=== PATIENT | female | born 1995 | race Caucasian/White ===

== ENCOUNTER 2020-08-07 18:37 | Emergency (ER) | payer OTHER ==
[~2020-08-07] VITALS: Ht 170.2 cm; Wt 81.8 kg
[~2020-08-07 18:37] MED LIST: CPH250CIP PO; NAPR-243 PO
[2020-08-07 19:17] VITALS: BP 115/75
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
== END 2020-08-07 19:45 | disposition home or self-care (01) ==
LOC: EDUNIT# 18:37 → ER 18:39
DX: S01.112A Laceration without foreign body of left eyelid and periocular area, initial encounter (principal); Z88.0 Allergy status to penicillin; W20.8XXA Other cause of strike by thrown, projected or falling object, initial encounter
CPT/HCPCS: 12011

== ENCOUNTER 2020-11-03 01:21 | Emergency (ER) | payer OTHER ==
[~2020-11-03] VITALS: Ht 170 cm; Wt 82.0 kg
[2020-11-03 01:28] VITALS: BP 121/83
--- NOTE | 2020-11-03 01:48 | ED EENT ---
History of Present Illness General Chief Complaint: Oral/Throat Problems Stated Complaint: POST OP TONSILECTOMY BLEED Nursing Triage Note: bleeding from tonsillectomy 10/24/20. 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 Source: patient Exam Limitations: no limitations (HALLEY MEDINA) History of Present Illness Date Seen by Provider: November 03, 2020 Time Seen by Provider: 01:35 Initial Comments Pt presents to ED via POV with complaint of post-tonsillectomy bleeding. She states that just prior to arrival, she was moving furniture at her home when her tonsillectomy sites started bleeding. She had the procedure on 10/[address] Ellison and has a f/u appointment in early November. She states that the bleeding lasted a couple of minutes and stopped on its own prior to arrival. She finished her course of antibiotics on Saturday and does not currently take any medications. She denies other symptoms of chest pain, abd pain, N/V, SOB, lightheadedness. Location Injury Occurred: home Timing/Duration: abrupt Severity: moderate Location: mouth Prearrival Treatment: no prearrival treatment Presenting Symptoms/Injuries: bleeding to tonsillectomy sites Modifying Factors: Improves With Activity (moving furniture) Associated Symptoms: No cough, No fever, No malaise, No nasal congestion/drainage (HALLEY MEDINA STUDENT) Allergies and Home Medications Allergies Coded Allergies: Penicillins (Unverified Allergy, 01/30/11) Home Medications Naproxen 500 Mg Tablet, 1 EACH PO TID PRN FOR PAIN Prescribed by: ROSA MATAMOROS on 07/13/11 1044 Patient Home Medication List Home Medication List Reviewed: Yes (HALLEY MEDINA STUDENT) Review of Systems Review of Systems Constitutional: No chills, No fever, No weakness Eyes: Denies Blurred Vision, Denies Pain, Denies Vision Changes Ears: Denies Dizziness, Denies Pain, Denies Tinnitus Nose: denies clots, denies epistaxis, denies pain Mouth: clots; denies pain; bloody discharge Throat: denies pain, denies swelling, denies neck stiffness Respiratory: No cough, No short of breath Cardiovascular: No chest pain, No edema, No palpitations Gastrointestinal: No abdominal pain, No constipation, No diarrhea, No nausea, No vomiting Musculoskeletal: No back pain, No joint pain, No muscle pain Skin: No change in color, No rash Neurological: Denies Headache, Denies Numbness, Denies Paresthesia, Denies Tingling, Denies Weakness (HALLEY MEDINA STUDENT) All Other Systems Reviewed Negative Unless Noted: Yes (ADAMHALLEY FRAGA STUDENT) Past Zxnpncy-Vugbsb-Qzldpo Hx Past Med/Social Hx: Reviewed Nursing Past Med/Soc Hx (ADAMHALLEY FRAGA STUDENT) Patient Social History Alcohol Use: Denies Use Smoking Status: Never a Smoker 2nd Hand Smoke Exposure: No Recent Infectious Disease Expo: No Recent Hopitalizations: No (ADAMHALLEY FRAGA STUDENT) Seasonal Allergies Seasonal Allergies: No (ADAMHALLEY FRAGA STUDENT) Past Medical History Surgeries: No Respiratory: No Cardiac: No Neurological: No : No Last Menstrual Period: October 09, 2020 Genitourinary: No Gastrointestinal: No Musculoskeletal: No Endocrine: No HEENT: No Cancer: No Psychosocial: No Integumentary: No Blood Disorders: No (ADAMHALLEY FRAGA STUDENT) Physical Exam Vital Signs Vital Signs - First Documented 11/03/20 01:28 Temp 36.6 Pulse 107 Resp 18 B/P (MAP) 121/83 (96) Pulse Ox 96 O2 Delivery Room Air (HENRY NEFF) Height, Weight, BMI Height: '" Weight: lbs. oz. kg; 28.00 BMI Method:Stated General Appearance: WD/WN, no apparent distress Eyes: bilateral eye normal inspection, bilateral eye PERRL, bilateral eye EOMI Ears: bilateral ear auricle normal Nose: normal inspection Mouth/Throat: other (bilateral post-tonsillectomy sites covered with clots and no active bleeds) Neck: non-tender, full range of motion, supple, normal inspection Cardiovascular: normal peripheral pulses, regular rate, rhythm, no murmur Respiratory: chest non-tender, lungs clear, normal breath sounds, no respiratory distress, no accessory muscle use Gastrointestinal: normal bowel sounds, non tender, soft; No distended, No guarding Neurologic/Psychiatric: no motor/sensory deficits, alert, normal mood/affect, oriented x 3 Skin: normal color, warm/dry (ADAMHALLEY FRAGA STUDENT) Progress/Results/Core Measures Results/Orders Vital Signs/I&O 11/03/20 01:28 Temp 36.6 Pulse 107 Resp 18 B/P (MAP) 121/83 (96) Pulse Ox 96 O2 Delivery Room Air (HENRY NEFF) Blood Pressure Mean: 96 Progress Progress Note #1: Time: 01:45 Progress Note I attest that I 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 Patient's not having any further bleeding and everything seems to be clotted off at this time. She not having any nausea chest pain shortness of air or other worrisome symptoms. We are going to observe her for about half an hour to 45 minutes give her some ice water to sip on. If she does not have any further bl eeding we will let her go home and have her call Dr. Ellison's office in the morning. We have encouraged her if the bleeding starts again to try rinsing for about 10 minutes and if the bleeding does not stop after 10 minutes then return to the ER. Progress Note #2: Time: 02:17 Progress Note Patient still not having any bleeding. She has some small blood clots in the back of her throat otherwise looks okay. No nausea or other symptoms. (HENRY NEFF) Departure Impression Primary Impression: Post-tonsillectomy hemorrhage Disposition: 01 HOME, SELF-CARE Condition: Stable Departure-Patient Inst. Decision time for Depature: 02:16 (HENRY NEFF) Referrals: MATTHEW ELLISON MD,LOCAL PHYSICIAN (PCP) Primary Care Physician Patient Instructions: Bleeding After Surgery, Tonsillectomy (DC) Add. Discharge Instructions: Get plenty of rest throughout the next day. No heavy lifting. If you have repeat bleeding then rinse the back your throat with clean, cool tap water with or without ice for 10 minutes. If you cannot get the bleeding to stop in 10 minutes then return to the ER or call Dr. Ellison's office during business hours. Otherwise plan to call Dr. Ellison's office to check in in the morning. Avoid ibuprofen, Aleve, naproxen. Tylenol is okay. All discharge instructions reviewed with patient and/or family. Voiced understanding. Work/School Note: Work Release Form Date Seen in the Emergency Department: November 03, 2020 Return to Work: November 04, 2020 Restrictions: No Restrictions Copy Copies To 1: MATTHEW ELLISON MD, JOHNNY MED STUDENT November 03, 2020 01:48 HENRY NEFF November 03, 2020 01:59
== END 2020-11-03 02:21 | disposition home or self-care (01) ==
LOC: EDUNIT# 01:21 → ER 01:24
DX: J95.831 Postprocedural hemorrhage of a respiratory system organ or structure following other procedure (principal)
CPT/HCPCS: 99282

== ENCOUNTER 2020-11-05 01:48 | Day surgery (SDC) | payer OTHER ==
[~2020-11-05] VITALS: Ht 170 cm; Wt 79.0 kg
[2020-11-05] VITALS (10 sets, daily range): BP systolic 97–128; BP diastolic 57–73
[2020-11-05] MEDS ORDERED: NS IV 1000 ML 1,000 ML IV SCH ×2 (02:30→03:00)
[2020-11-05 02:46] LABS: BASOPHILS % (AUTO) 0 % (0-10); EOSINOPHILS # (AUTO) 0.3 10^3/uL (0.0-0.3); EOSINOPHILS % (AUTO) 2 % (0-10); HEMATOCRIT 29 % (35-52); HEMOGLOBIN 9.5 g/dL (11.5-16.0); LYMPHOCYTES # (AUTO) 6.3 10^3/uL (1.0-4.0); LYMPHOCYTES % (AUTO) 35 % (12-44); MEAN CORPUSCULAR HEMOGLOBIN 29 pg (25-34); MEAN CORPUSCULAR HGB CONC 33 g/dL (32-36); MEAN CORPUSCULAR VOLUME 88 fL (80-99); MONOCYTES # (AUTO) 1.4 10^3/uL (0.0-1.0); MONOCYTES % (AUTO) 8 % (0-12); NEUTROPHILS % (AUTO) 55 % (42-75); PLATELET COUNT 273 10^3/uL (130-400); WHITE BLOOD COUNT 18.1 10^3/uL (4.3-11.0)
--- NOTE | 2020-11-05 02:57 | ED EENT ---
History of Present Illness General Chief Complaint: Oral/Throat Problems Stated Complaint: POST TONSILECTOMY BLEEDING Source: patient History of Present Illness Date Seen by Provider: November 05, 2020 Time Seen by Provider: 02:12 Initial Comments PT ARRIVES VIA POV C/O BLEEDING FROM TONSILLECTOMY SITE/THROAT SINCE [address]. WILD ON 10/24/20 [facility] SEEN HERE 11/03/20 FOR SAME, BUT BLEEDING HAD STOPPED AT THAT TIME PT HAS NOT ATTEMPTED TO CONTACT DR. WILD FOR THIS PROBLEM NO SIGNIFICANT PAIN NO FEVER STATES SHE VOMITED UP ALOT OF BLOOD AND HAS BEEN SPITTING UP BLOOD AND CLOTS TONIGHT PT HAD GARGLED WITH COLD WATER TONIGHT WHEN IT FIRST STARTED, AND IT STOPPED BRIEFLY, THEN HAS BEEN CONTINUOUS SINCE PT HAS BEEN VERY ACTIVE TODAY, ATE BREAKFAST, HAD A PEDICURE, HAD DINNER, HAS BEEN MOVING FURNITURE AROUND IN A HOUSE, HAS BEEN TO THE BAR TONIGHT--STATES SHE HAS NOT HAD ANY ALCOHOL PT IS NOT ON ANTIBIOTICS AT THIS TIME. Allergies and Home Medications Allergies Coded Allergies: Penicillins (Unverified Allergy, Unknown, 11/05/20) Home Medications No Active Prescriptions or Reported Meds Patient Home Medication List Home Medication List Reviewed: Yes Review of Systems Review of Systems Constitutional: dizziness (ON ARRIVAL); No fever Throat: see HPI Gastrointestinal: see HPI Past Premdsj-Eftwev-Zasyiq Hx Past Med/Social Hx: Reviewed and Corrections made Patient Social History Alcohol Use: Occasionally Uses Smoking Status: Never a Smoker 2nd Hand Smoke Exposure: No Recent Hopitalizations: No Seasonal Allergies Seasonal Allergies: No Past Medical History Surgeries: Yes Adenoidectomy, Tonsillectomy Respiratory: No Cardiac: No Neurological: No Genitourinary: No Gastrointestinal: No Musculoskeletal: No Endocrine: No HEENT: No Cancer: No Psychosocial: No Integumentary: No Blood Disorders: No Physical Exam Height, Weight, BMI Height: '" Weight: lbs. oz. kg; 28.00 BMI Method:Stated General Appearance: WD/WN, other (VERY PALE, NEAR-SYNCOPAL EPISODE ON ARRIVAL, C/O DIZZINESS) Eyes: bilateral eye PERRL, bilateral eye EOMI Mouth/Throat: other (PT WITH MODERATE AMOUNT OF BLOOD AROUND MOUTH, IN MOUTH AND BOTH TONSILS, UVULA AND POSTERIOR PHARYNX COMPLETELY COVERED WITH BLOOD, WITH SOME EARLY CLOTS. VOICE SLIGHTLY MUFFLED. ) Cardiovascular: tachycardia Respiratory: normal breath sounds, no respiratory distress Gastrointestinal: non tender, soft Neurologic/Psychiatric: no motor/sensory deficits, alert, oriented x 3 Skin: cool, pallor Progress/Results/Core Measures Results/Orders Lab Results Laboratory Tests Test 11/05/20 02:35 11/05/20 02:39 Range/Units White Blood Count 18.1 H 4.3-11.0 10^3/uL Red Blood Count 3.32 L 3.80-5.11 10^6/uL Hemoglobin 9.5 L 11.5-16.0 g/dL Hematocrit 29 L 35-52 % Mean Corpuscular Volume 88 80-99 fL Mean Corpuscular Hemoglobin 29 25-34 pg Mean Corpuscular Hemoglobin Concent 33 32-36 g/dL Red Cell Distribution Width 14.8 H 10.0-14.5 % Platelet Count 273 130-400 10^3/uL Mean Platelet Volume 10.0 9.0-12.2 fL Immature Granulocyte % (Auto) 0 % Neutrophils (%) (Auto) 55 42-75 % Lymphocytes (%) (Auto) 35 12-44 % Monocytes (%) (Auto) 8 0-12 % Eosinophils (%) (Auto) 2 0-10 % Basophils (%) (Auto) 0 0-10 % Neutrophils # (Auto) 10.0 H 1.8-7.8 10^3/uL Lymphocytes # (Auto) 6.3 H 1.0-4.0 10^3/uL Monocytes # (Auto) 1.4 H 0.0-1.0 10^3/uL Eosinophils # (Auto) 0.3 0.0-0.3 10^3/uL Basophils # (Auto) 0.0 0.0-0.1 10^3/uL Immature Granulocyte # (Auto) 0.1 0.0-0.1 10^3/uL My Orders Orders - ROSA MATAMOROS DO Ed Iv/Invasive Line Start (11/05/20 02:18) Cbc With Automated Diff (11/05/20 02:18) Comprehensive Metabolic Panel (11/05/20 02:18) Hcg,Qualitative Serum (11/05/20 02:18) Ed Iv/Invasive Line Start (11/05/20 02:18) Ns Iv 1000 Ml (Sodium Chloride 0.9%) (11/05/20 02:30) Type And Screen (11/05/20 02:45) Ed Iv/Invasive Line Start (11/05/20 02:48) Ns Iv 1000 Ml (Sodium Chloride 0.9%) (11/05/20 03:00) Progress Progress Note : Progress Note HR 132 ON ARRIVAL, BP 77/52, WITH NEAR-SYNCOPE ON ARRIVAL LAID FLAT, STARTED IV FLUIDS PT DENIES PAIN OR NAUSEA AT THIS TIME BP UP AND HEART RATE DOWN WITH IV FLUIDS Departure Communication (Admissions) 0230--CALLED DR. WILD, HE WILL BE IN TO SEE PT , ADVISES TO CALL IN OR CREW 0250--DR. WILD HERE Impression Primary Impression: Post-tonsillectomy hemorrhage Disposition: ADMITTED INPATIENT (TO SURGERY) Condition: Stable Admissions Decision to Admit Reason: Admit from ER (General) (TO SURGERY) Decision to Admit/Date: November 05, 2020 Time/Decision to Admit Time: 02:30 Departure-Patient Inst. Referrals: NO,LOCAL PHYSICIAN (PCP/Family) Primary Care Physician Scripts No Active Prescriptions or Reported Meds ROSA MATAMOROS DO November 05, 2020 02:57
[2020-11-05 03:05] LABS: ALBUMIN 3.6 GM/DL (3.2-4.5); CHLORIDE 107 MMOL/L (98-107); POTASSIUM 3.5 MMOL/L (3.6-5.0); SODIUM 139 MMOL/L (135-145)
[2020-11-05] MEDS ORDERED: ONDANSETRON 4 MG/2 ML (SDV) Z0FRAN ONE ×2 (03:05→03:09)
[2020-11-05 03:06] LABS: CALCIUM 8.7 MG/DL (8.5-10.1)
[2020-11-05] MEDS ORDERED: morphine INJ 10 MG/ML 1ML (SYR OR VIAL) ONE (03:06)
[2020-11-05 03:07] LABS: GLUCOSE 113 MG/DL (70-105)
[2020-11-05 03:09] LABS: BILIRUBIN,TOTAL 0.2 MG/DL (0.1-1.0); CARBON DIOXIDE 22 MMOL/L (21-32)
[2020-11-05] MEDS ORDERED: SEVOFLURANE (ULTANE) 15 ML INHAL SOLN ONE (03:09)
[2020-11-05] MEDS ORDERED: LIDOCAINE PF 2% 5 ML (XYLOCAINE) VIAL ONE (03:09)
[2020-11-05] MEDS ORDERED: SUCCINYLCHOLINE INJ 100 MG/5 ML SYR/VIAL ONE (03:09)
[2020-11-05] MEDS ORDERED: proPOfol 200 MG/20 ML (DIPRIVAN) VIAL IV ONE (03:09)
[2020-11-05] MEDS ORDERED: fentaNYL INJ 100 MCG/2 ML AMP ONE (03:09)
[2020-11-05] MEDS ORDERED: MIDAZOLAM 2 MG/2 ML (VERSED) VIAL ONE (03:10)
[2020-11-05 03:11] LABS: ALKALINE PHOSPHATASE 60 U/L (40-136); CREATININE SERUM 0.77 MG/DL (0.60-1.30); GFR ESTIMATED > 60
[2020-11-05 03:12] LABS: BUN/CREATININE RATIO 18
[2020-11-05 03:14] LABS: ALANINE AMINOTRANSFERASE 8 U/L (0-55)
--- NOTE | 2020-11-05 04:11 | Anesthesia-General Post-Op ---
General Patient Condition Mental Status/LOC: Same as Preop Cardiovascular: Satisfactory Nausea/Vomiting: Absent Respiratory: Satisfactory Pain: Controlled Complications: Absent Post Op Complications Complications None Follow Up Care/Instructions Patient Instructions None needed. Anesthesia/Patient Condition Patient Condition Patient is doing well, no complaints, stable vital signs, no apparent adverse anesthesia problems. No complications reported per nursing. MICHAELA GUNTER CRNA November 05, 2020 04:11
--- NOTE | 2020-11-05 04:14 | Progress Note-Post Operative ---
Post-Operative Progess Note Surgeon (s)/Media Center Assistant (s) Surgeon MATTHEW WILD MD Media Center Assistant n/a Post-Operative Diagnosis same Post-Op Procedure Note Date of Procedure: November 05, 2020 Name of Procedure Performed: Repair of Post-op Tonsil Bleed Description & Findings Description and Findings: n/a Anesthesia Type get Estimated Blood Loss minimal Packing none. Specimen(s) collected/removed none MATTHEW WILD MD November 05, 2020 04:14
[2020-11-05] MEDS ORDERED: LACTATED RINGERS 1,000 ML IV PRN (04:15)
[2020-11-05] MEDS ORDERED: PROMETHAZINE INJ 25 MG/ML (PHENERGAN) AMP IVP ONE (04:15)
[2020-11-05] MEDS ORDERED: ONDANSETRON 4 MG/2 ML (SDV) Z0FRAN IVP PRN (04:15)
[2020-11-05] MEDS ORDERED: morphine INJ 10 MG/ML 1ML (SYR OR VIAL) IVP ONE (04:15)
[2020-11-05] MEDS ORDERED: APAP 325 MG/10.15 ML LIQ (TYLENOL) UDC PO PRN (04:15)
[2020-11-05] MEDS ORDERED: HYDROcodone/APAP 7.5MG-325 MG/15 ML (LORTAB) UDC PO PRN (04:15)
[2020-11-05] MEDS ORDERED: MEPERIDINE (DEMEROL) INJ 50 MG/ML IVP ONE (04:15)
[2020-11-05] MEDS ORDERED: fentaNYL INJ 100 MCG/2 ML AMP IVP ONE (04:15)
[2020-11-05] MEDS ORDERED: ONDANSETRON 4 MG (ZOFRAN) ORAL DISSOLVE TAB PO STA (04:17)
== END 2020-11-05 13:44 | disposition home or self-care (01) ==
LOC: EDUNIT# 01:48 → ER 01:51 → SDC 03:49 → 4TH 04:55 → SDC 13:44
PROVIDERS: ATTEND Otolaryngology Otolaryngology/Facial Plastic Surgery
DX: J95.830 Postprocedural hemorrhage of a respiratory system organ or structure following a respiratory system procedure (principal); Z90.89 Acquired absence of other organs
CPT/HCPCS: 36415; 80053; 84703; 85025; 86850; 86900; 86901

== ENCOUNTER 2021-12-15 12:34 | Emergency (ER) | payer SELFPAY ==
[2021-12-15] MEDS ORDERED: NS 100 ML (IVPB) BAG IV ONE (13:15)
[2021-12-15] MEDS ORDERED: KETOROLAC 30 MG/ML VIAL IVP ONE (13:15)
[2021-12-15] MEDS ORDERED: IOHEXOL 350 MG/ML 100 ML (OMNIPAQUE 350) VIAL IV ONE (13:15)
[2021-12-15] MEDS ORDERED: HOLD METFORMIN - RECEIVED CONTRAST 20 ML VIAL IV SCH (13:15)
--- NOTE | 2021-12-15 13:18 | ED Abdominal Pain ---
General Chief Complaint: Abdominal/GI Problems Stated Complaint: RLQ PAIN Source of Information: Patient Exam Limitations: No Limitations (VENKAT GARCIA APRN) History of Present Illness Date Seen by Provider: Dec 15, 2021 Time Seen by Provider: 13:17 Initial Comments To ER by private [facility] where she presented with right lower quadrant abdominal pain that started fairly suddenly while at work today. No nausea. Pain is constant but occasionally worse. No fevers or chills no dysuria no bowel changes. Timing/Duration: 4-6 Hours Severity/Quality: Moderate Location: RLQ, Flank Radiation: No Radiation Activities at Onset: None (VENKAT GARCIA APRN) Allergies and Home Medications Allergies Coded Allergies: Penicillins (Unverified Allergy, Unknown, 11/05/20) cephalexin (Verified Allergy, Unknown, HIVES, 12/15/21) Patient Home Medication List Home Medication List Reviewed: Yes (VENKAT GARCIA APRN) Polyethylene Glycol 3350 (Miralax) 17 Gram Powd.pack, 17 GM PO BID Prescribed by: VENKAT GARCIA on 12/15/21 1402 Review of Systems Review of Systems Constitutional: see HPI EENTM: No Symptoms Reported Respiratory: No Symptoms Reported Cardiovascular: No Symptoms Reported Gastrointestinal: See HPI, Abdominal Pain Genitourinary: No Symptoms Reported Musculoskeletal: no symptoms reported Skin: no symptoms reported Psychiatric/Neurological: No Symptoms Reported Endocrine: No Symptoms Reported Hematologic/Lymphatic: No Symptoms Reported (VENKAT GARCIA APRN) Past Umyncad-Wdvvag-Dbgtjm Hx Patient Social History Tobacco Use?: No Use of E-Cig and/or Vaping dev: No Substance use?: No Alcohol Use?: Yes Alcohol type: Beer Alcohol Frequency: Rarely Pt feels they are or have been: No (VENKAT GARCIA APRN) Immunizations Up To Date Influenza Vaccine Up-to-Date: No; Not Current First/Initial COVID19 Vaccinat: 2020 Second COVID19 Vaccination Tevin: 2020 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: [employer] (VENKAT GARCIA APRN) Seasonal Allergies Seasonal Allergies: No (VENKAT GARCIA APRN) Past Medical History Surgery/Hospitalization HX: DEPRESSION TONSILS, IUD Surgeries: Yes Adenoidectomy, Tonsillectomy Respiratory: No Cardiac: No Neurological: No Genitourinary: No Gastrointestinal: No Musculoskeletal: No Endocrine: No HEENT: No Cancer: No Psychosocial: No Integumentary: No Blood Disorders: No (VENKAT GARCIA APRN) Physical Exam Vital Signs Vital Signs - First Documented 12/15/21 13:00 Temp 36.1 Pulse 69 Resp 14 B/P (MAP) 116/83 (94) (SHAD DIAZ MD) Vital Signs Capillary Refill : (VENKAT GARCIA APRN) Height/Weight/BMI Height: '" Weight: lbs. oz. kg; 27.33 BMI Method:Stated General Appearance: WD/WN, no apparent distress Respiratory: lungs clear, normal breath sounds, no respiratory distress, no accessory muscle use Cardiovascular: regular rate, rhythm, no murmur Gastrointestinal: normal bowel sounds, non tender, soft; No guarding, No rebound, No tenderness Extremities: normal range of motion, non-tender Neurologic/Psychiatric: alert, normal mood/affect, oriented x 3 Skin: normal color (VENKAT GARCIA APRN) Progress/Results/Core Measures Results/Orders Lab Results Laboratory Tests Test 12/15/21 13:09 12/15/21 14:36 Range/Units White Blood Count 7.9 4.3-11.0 10^3/uL Red Blood Count 4.21 3.80-5.11 10^6/uL Hemoglobin 10.9 L 11.5-16.0 g/dL Hematocrit 35 35-52 % Mean Corpuscular Volume 82 80-99 fL Mean Corpuscular Hemoglobin 26 25-34 pg Mean Corpuscular Hemoglobin Concent 32 32-36 g/dL Red Cell Distribution Width 18.6 H 10.0-14.5 % Platelet Count 244 130-400 10^3/uL Mean Platelet Volume 10.0 9.0-12.2 fL Immature Granulocyte % (Auto) 0 % Neutrophils (%) (Auto) 57 42-75 % Lymphocytes (%) (Auto) 31 12-44 % Monocytes (%) (Auto) 9 0-12 % Eosinophils (%) (Auto) 2 0-10 % Basophils (%) (Auto) 0 0-10 % Neutrophils # (Auto) 4.5 1.8-7.8 10^3/uL Lymphocytes # (Auto) 2.4 1.0-4.0 10^3/uL Monocytes # (Auto) 0.7 0.0-1.0 10^3/uL Eosinophils # (Auto) 0.2 0.0-0.3 10^3/uL Basophils # (Auto) 0.0 0.0-0.1 10^3/uL Immature Granulocyte # (Auto) 0.0 0.0-0.1 10^3/uL Sodium Level 137 135-145 MMOL/L Potassium Level 3.7 3.6-5.0 MMOL/L Chloride Level 106 98-107 MMOL/L Carbon Dioxide Level 23 21-32 MMOL/L Anion Gap 8 5-14 MMOL/L Blood Urea Nitrogen 11 7-18 MG/DL Creatinine 0.70 0.60-1.30 MG/DL Estimat Glomerular Filtration Rate 124 BUN/Creatinine Ratio 16 Glucose Level 86 70-105 MG/DL Calcium Level 8.9 8.5-10.1 MG/DL Corrected Calcium 8.7 8.5-10.1 MG/DL Total Bilirubin 0.7 0.1-1.0 MG/DL Aspartate Amino Transf (AST/SGOT) 18 5-34 U/L Alanine Aminotransferase (ALT/SGPT) 14 0-55 U/L Alkaline Phosphatase 59 40-136 U/L Total Protein 7.0 6.4-8.2 GM/DL Albumin 4.2 3.2-4.5 GM/DL Serum Test, Qualitative NEGATIVE NEGATIVE Urine Color YELLOW Urine Clarity CLEAR Urine pH 6.0 5-9 Urine Specific [place] >=1.030 1.016-1.022 Urine Protein TRACE H NEGATIVE Urine Glucose (UA) NEGATIVE NEGATIVE Urine Ketones NEGATIVE NEGATIVE Urine Nitrite NEGATIVE NEGATIVE Urine Bilirubin NEGATIVE NEGATIVE Urine Urobilinogen 0.2 < = 1.0 MG/DL Urine Leukocyte Esterase NEGATIVE NEGATIVE Urine RBC (Auto) 2+ H NEGATIVE Urine RBC 10-25 H /HPF Urine WBC 0-2 /HPF Urine Squamous Epithelial Cells 0-2 /HPF Urine Crystals PRESENT H /LPF Urine Amorphous Sediment FEW COLIN URATES H /LPF Urine Bacteria NEGATIVE /HPF Urine Casts NONE /LPF Urine Mucus MODERATE H /LPF Urine Culture Indicated NO (SHAD DIAZ MD) Medications Given in ED Current Medications Medications Dose Ordered Sig/Lily Route Start Time Stop Time Status Last Admin Dose Admin Ketorolac Tromethamine 15 mg ONCE ONCE IVP 12/15/21 13:15 12/15/21 13:17 DC 12/15/21 13:19 15 MG (SHAD DIAZ MD) Vital Signs/I&O 12/15/21 12/15/21 13:00 15:54 Temp 36.1 36.1 Pulse 69 67 Resp 14 14 B/P (MAP) 116/83 (94) 122/77 (SHAD DIAZ MD) Departure Impression Primary Impression: Constipation Additional Impression: Nephrolithiasis Disposition: HOME, SELF-CARE Condition: Stable Departure-Patient Inst. Decision time for Depature: 14:01 (VENKAT GARCIA APRN) Referrals: NO,LOCAL PHYSICIAN (PCP/Family) Primary Care Physician Patient Instructions: Constipation in Adults Add. Discharge Instructions: Increase water intake. Return to ER for any concerns. Laxative as directed. Follow-up with your doctor next week. You do have a small 2 mm stone in the right kidney. These tend to not cause pain until they are in the ureter--continue that goes from the kidney to the bladder. So, the location where yours is right now for at least at the time of the CT scan with a location that does not cause pain. That being said you could pass this at any time or you could never pass it. Take a laxative as directed as the constipation on the ascending colon will certainly cause some right-sided abdominal discomfort. Follow-up with your doctor next week. All discharge instructions reviewed with patient and/or family. Voiced understanding. Scripts Polyethylene Glycol 3350 (Miralax) 17 Gram Powd.pack 17 GM PO BID, #10 EACH Prov: VENKAT GARCIA APRN 12/15/21 ATTENDING PHYSICIAN NOTE: I was physically present as attending physician in the emergency department during the care of this patient, but I was not directly involved in the decision making or delivery of care for this patient. (SHAD DIAZ MD) VENKAT GARCIA APRN Dec 15, 2021 13:18 SHAD DIAZ MD Dec 15, 2021 18:31
[2021-12-15 13:30] LABS: BASOPHILS % (AUTO) 0 % (0-10); EOSINOPHILS # (AUTO) 0.2 10^3/uL (0.0-0.3); EOSINOPHILS % (AUTO) 2 % (0-10); HEMATOCRIT 35 % (35-52); HEMOGLOBIN 10.9 g/dL (11.5-16.0); LYMPHOCYTES # (AUTO) 2.4 10^3/uL (1.0-4.0); LYMPHOCYTES % (AUTO) 31 % (12-44); MEAN CORPUSCULAR HEMOGLOBIN 26 pg (25-34); MEAN CORPUSCULAR HGB CONC 32 g/dL (32-36); MEAN CORPUSCULAR VOLUME 82 fL (80-99); MONOCYTES # (AUTO) 0.7 10^3/uL (0.0-1.0); MONOCYTES % (AUTO) 9 % (0-12); NEUTROPHILS # (AUTO) 4.5 10^3/uL (1.8-7.8); NEUTROPHILS % (AUTO) 57 % (42-75); PLATELET COUNT 244 10^3/uL (130-400); WHITE BLOOD COUNT 7.9 10^3/uL (4.3-11.0)
[2021-12-15 13:48] LABS: ALBUMIN 4.2 GM/DL (3.2-4.5)
[2021-12-15 13:49] LABS: POTASSIUM 3.7 MMOL/L (3.6-5.0)
--- NOTE | 2021-12-15 13:49 | Diagnostic Imaging Report ---
EXAMINATION: CT abdomen and pelvis without contrast. TECHNIQUE: Multiple contiguous axial images were obtained through the abdomen and pelvis without the use of intravenous contrast. All CT scans use one or more of the following dose optimizing techniques: automated exposure control, MA and/or KvP adjustment based on patient size and exam type or iterative reconstruction. HISTORY: right lower pain COMPARISON: None available. FINDINGS: Lung bases: The lung bases are clear. Solid organs: The liver is normal. The gallbladder is normal. There is no biliary ductal dilation. Pancreas is normal. Spleen is normal. Adrenal glands are normal. There is a nonobstructing 0.2 cm right renal calculus. No hydronephrosis. Bowel: The stomach and small bowel are normal without obstruction. The colon and appendix are normal. Peritoneum: There is no intraperitoneal free fluid or free air. No suspicious lymphadenopathy. Vasculature: Normal without aneurysm. Musculoskeletal: No suspicious osseous lesion or compression fracture. Pelvis: An IUD is present within the uterus. The urinary bladder is normal. IMPRESSION: 1. No acute abnormality in the abdomen or pelvis. 2. Nonobstructing 0.2 cm right renal calculus without hydronephrosis. Dictated by: Dictated on workstation # [id number]
[2021-12-15 13:50] LABS: CALCIUM 8.9 MG/DL (8.5-10.1)
[2021-12-15 13:53] LABS: BILIRUBIN,TOTAL 0.7 MG/DL (0.1-1.0)
[2021-12-15 13:55] LABS: CREATININE SERUM 0.7 MG/DL (0.60-1.30)
[2021-12-15] MEDS ORDERED: POLY17PO6 PO (14:02)
[2021-12-15 14:45] LABS: BILIRUBIN,URINE NEGATIVE (NEGATIVE); CLARITY,URINE CLEAR; COLOR,URINE YELLOW; GLUCOSE, URINE (UA) NEGATIVE (NEGATIVE); KETONES,URINE NEGATIVE (NEGATIVE); LEUKOCYTE ESTERASE ,URINE NEGATIVE (NEGATIVE); NITRITE,URINE NEGATIVE (NEGATIVE); PROTEIN,URINE TRACE (NEGATIVE)
[2021-12-15 15:15] LABS: AMORPHOUS SEDIMENT,UR FEW AMOR URATES /LPF; BACTERIA,URINE NEGATIVE /HPF; SQUAMOUS EPITHELIAL CELL,UR 0-2 /HPF; WBC,URINE 0-2 /HPF
[2021-12-15 15:54] VITALS: BP 122/77
== END 2021-12-15 15:55 | disposition home or self-care (01) ==
LOC: EDUNIT# 12:34 → ER 12:35
DX: N20.0 Calculus of kidney (principal); K59.00 Constipation, unspecified; Z32.02 Encounter for pregnancy test, result negative
CPT/HCPCS: 36415; 74176; 80053; 81000; 84703; 85025

== ENCOUNTER 2022-07-10 13:25 | Observation (INO) | payer SELFPAY ==
[~2022-07-10] VITALS: Ht 170.2 cm; Wt 82.7 kg
[2022-07-10] VITALS (7 sets, daily range): BP systolic 101–129; BP diastolic 54–69
[~2022-07-10 13:25] MED LIST changes: +POLY17PO6 PO
[2022-07-10] MEDS ORDERED: KETOROLAC 30 MG/ML VIAL IVP STA (13:46)
[2022-07-10 14:01] LABS: BASOPHILS % (AUTO) 0 % (0-10); EOSINOPHILS # (AUTO) 0.2 10^3/uL (0.0-0.3); EOSINOPHILS % (AUTO) 3 % (0-10); HEMATOCRIT 34 % (35-52); HEMOGLOBIN 10.9 g/dL (11.5-16.0); LYMPHOCYTES # (AUTO) 2.5 10^3/uL (1.0-4.0); LYMPHOCYTES % (AUTO) 28 % (12-44); MEAN CORPUSCULAR HEMOGLOBIN 26 pg (25-34); MEAN CORPUSCULAR HGB CONC 32 g/dL (32-36); MEAN CORPUSCULAR VOLUME 80 fL (80-99); MEAN PLATELET VOLUME 10.5 fL (9.0-12.2); MONOCYTES # (AUTO) 0.7 10^3/uL (0.0-1.0); MONOCYTES % (AUTO) 7 % (0-12); NEUTROPHILS # (AUTO) 5.7 10^3/uL (1.8-7.8); NEUTROPHILS % (AUTO) 62 % (42-75); PLATELET COUNT 238 10^3/uL (130-400); WHITE BLOOD COUNT 9.1 10^3/uL (4.3-11.0)
--- NOTE | 2022-07-10 14:01 | ED Cardiac General ---
History of Present Illness General Chief Complaint: Cardiac/General Problems Stated Complaint: CHEST HEAVINESS Source: patient Exam Limitations: no limitations History of Present Illness Date Seen by Provider: Jul 10, 2022 Time Seen by Provider: 13:36 Initial Comments Here with report of central chest heaviness that has been intermittent over the last several days. She is also had some stomach upset over the last month but has had some intermittent diarrhea. Denies any recent illness. States chest pain is central and radiates outward but has twice now gone to the left axilla and left arm. Today, this happened after eating. That does not usually happen like that though. Does have history of pericarditis for 5 years ago and states it feels somewhat like that. She got that after a stomach bug. That resolved after taking ibuprofen. She has had no significant sequela from that. Of note, she also notes that she had left nipple discharge after she removed the nipple piercing a month ago. States that it drained and seems to have improved but did have just a little bit of drainage over the last day. No significant redness. Denies fever. Denies any recent upper respiratory illness. She is vaccinated for COVID but not for influenza. Timing/Duration: intermittent, 3-4 days Severity: mild Location: central Activities at Onset: none Prior CP/Workup: other (Pericarditis work-up) NTG SL UMBRELLA REPAIRER: No ASA po UMBRELLA REPAIRER: No Associated Systoms: Chest Pain; No Cough, No Fever/Chills, No Nausea/Vomiting, No Shortness of Air, No Weakness Allergies and Home Medications Allergies Coded Allergies: Penicillins (Unverified Allergy, Unknown, 11/05/20) cephalexin (Verified Allergy, Unknown, HIVES, 12/15/21) Patient Home Medication List Home Medication List Reviewed: Yes Polyethylene Glycol 3350 (Miralax) 17 Gram Powd.pack, 17 GM PO BID Prescribed by: VENKAT GARCIA on 12/15/21 1402 Review of Systems Review of Systems Constitutional: see HPI; No chills, No fever EENTM: No Nose Congestion, No Throat Pain Respiratory: Denies Cough, Denies Shortness of Air Cardiovascular: Chest Pain; Denies Irregular Heart Rate Gastrointestinal: Diarrhea; Denies Vomiting Genitourinary: No Symptoms Reported Musculoskeletal: no symptoms reported Skin: see HPI; No change in color; lesions Psychiatric/Neurological: No Symptoms Reported Past [place]-Zomegl-Umkcah Hx Patient Social History Tobacco Use?: No Use of E-Cig and/or Vaping dev: No Substance use?: No Alcohol Use?: Yes Alcohol Frequency: Once in a while Immunizations Up To Date First/Initial COVID19 Vaccinat: 2020 Second COVID19 Vaccination Tevin: 2020 Seasonal Allergies Seasonal Allergies: No Past Medical History Surgery/Hospitalization HX: DEPRESSION TONSILS, IUD Surgeries: Yes Adenoidectomy, Tonsillectomy Respiratory: No Cardiac: No Neurological: No Genitourinary: No Gastrointestinal: No Musculoskeletal: No Endocrine: No HEENT: No Cancer: No Psychosocial: No Integumentary: No Blood Disorders: No Family Medical History Reviewed Nursing Family Hx Physical Exam Vital Signs Vital Signs - First Documented 07/10/22 13:33 Temp 36.4 Pulse 74 Resp 16 B/P (MAP) 139/811 (589) Pulse Ox 98 Capillary Refill : Height, Weight, BMI Height: '" Weight: lbs. oz. kg; BMI Method:Stated General Appearance: No Apparent Distress, WD/WN HEENT: PERRL/EOMI, Pharynx Normal Neck: Non Tender, Supple Respiratory: Lungs Clear, Normal Breath Sounds Cardiovascular: Regular Rate, Rhythm, No Murmur Gastrointestinal: Non Tender, Soft Extremity: Normal Range of Motion, Non Tender Neurologic/Psychiatric: Alert, Oriented x3 Skin: Warm/Dry, Other (Evaluated left breast and no nipple discharge noted or abscess. No surrounding erythema around nipple or areola. No obvious signs of infection currently.) Progress/Results/Core Measures Results/Orders Lab Results Laboratory Tests Test 07/10/22 13:40 Range/Units White Blood Count 9.1 4.3-11.0 10^3/uL Red Blood Count 4.23 3.80-5.11 10^6/uL Hemoglobin 10.9 L 11.5-16.0 g/dL Hematocrit 34 L 35-52 % Mean Corpuscular Volume 80 80-99 fL Mean Corpuscular Hemoglobin 26 25-34 pg Mean Corpuscular Hemoglobin Concent 32 32-36 g/dL Red Cell Distribution Width 15.7 H 10.0-14.5 % Platelet Count 238 130-400 10^3/uL Mean Platelet Volume 10.5 9.0-12.2 fL Immature Granulocyte % (Auto) 0 % Neutrophils (%) (Auto) 62 42-75 % Lymphocytes (%) (Auto) 28 12-44 % Monocytes (%) (Auto) 7 0-12 % Eosinophils (%) (Auto) 3 0-10 % Basophils (%) (Auto) 0 0-10 % Neutrophils # (Auto) 5.7 1.8-7.8 10^3/uL Lymphocytes # (Auto) 2.5 1.0-4.0 10^3/uL Monocytes # (Auto) 0.7 0.0-1.0 10^3/uL Eosinophils # (Auto) 0.2 0.0-0.3 10^3/uL Basophils # (Auto) 0.0 0.0-0.1 10^3/uL Immature Granulocyte # (Auto) 0.0 0.0-0.1 10^3/uL Erythrocyte Sedimentation Rate 62 H 0-20 MM/HR Sodium Level 139 135-145 MMOL/L Potassium Level 3.8 3.6-5.0 MMOL/L Chloride Level 107 98-107 MMOL/L Carbon Dioxide Level 23 21-32 MMOL/L Anion Gap 9 5-14 MMOL/L Blood Urea Nitrogen 10 7-18 MG/DL Creatinine 0.70 0.60-1.30 MG/DL Estimat Glomerular Filtration Rate 124 BUN/Creatinine Ratio 14 Glucose Level 100 70-105 MG/DL Calcium Level 8.8 8.5-10.1 MG/DL Corrected Calcium 9.1 8.5-10.1 MG/DL Total Bilirubin 0.6 0.1-1.0 MG/DL Aspartate Amino Transf (AST/SGOT) 12 5-34 U/L Alanine Aminotransferase (ALT/SGPT) 11 0-55 U/L Alkaline Phosphatase 57 40-136 U/L Troponin I < 0.088 H <0.028 NG/ML C-Reactive Protein High Sensitivity 0.69 H 0.00-0.50 MG/DL Total Protein 6.6 6.4-8.2 GM/DL Albumin 3.6 3.2-4.5 GM/DL Lipase 29 8-78 U/L My Orders Orders - ISAC RAMSEY MD Cbc With Automated Diff (07/10/22 13:46) Comprehensive Metabolic Panel (07/10/22 13:46) Hs C Reactive Protein (07/10/22 13:46) Lipase (07/10/22 13:46) Troponin I Floyd (07/10/22 13:46) Erythrocyte Sedimentation Rate (07/10/22 13:46) Ed Iv/Invasive Line Start (07/10/22 13:46) Ekg Tracing (07/10/22 13:46) Chest 1 View, Ap/Pa Only (07/10/22 13:46) Ketorolac Injection (Toradol Injection) (07/10/22 13:46) Aspirin Tablet (Aspirin Tablet) (07/10/22 15:45) Pantoprazole Injection (Protonix Injecti (07/10/22 16:00) Ed Admission (Communication) (07/10/22 15:53) Vital Signs/I&O 07/10/22 13:33 Temp 36.4 Pulse 74 Resp 16 B/P (MAP) 139/811 (589) Pulse Ox 98 Progress Progress Note : Progress Note Seen and evaluated. IV, EKG, chest x-ray, CBC, CMP, CRP, sed rate and troponin ordered. Toradol 30 mg IV for pain. Monitor patient. Differential includes pericarditis, chest wall pain, pneumonia, cardiac event, gallbladder dysfunction, pancreatic dysfunction 1442: CBC reviewed and shows normal white count with hemoglobin 10.9 which is c onsistent to previous. No left shift noted. Chemistry grossly normal without elevation of LFTs or total bilirubin. CRP is slightly high at 0.69 but nonconcerning. Chest x-ray on my interpretation shows no acute findings including cardiomegaly or pneumonia. Pending radiology review. Lipase is normal. Troponin and sed rate are pending. Monitor patient. 1537: I did discuss the case with Dr. Bay. I have ordered Protonix 40 mg IV as well as aspirin 325 mg p.o. per his recommendation. He is recommending ibuprofen 600 mg 3 times daily as well as Lovenox prophylactic dosing. 1549: I did discuss the case with Dr. Miles and she accepts patient for admission, observation status with Dr. Bay on consult. We will trend troponins overnight. She will write orders. Findings and concerns discussed with patient who agrees with plan. Initial ECG Impression Date: Jul 10, 2022 Initial ECG Impression Time: 14:00 Initial ECG Rate: 67 Initial ECG Rhythm: Normal Sinus Comment Sinus rhythm with normal axis. Normal QRS duration. No evidence of ST elevation IN. Interpreted by me. Diagnostic Imaging Diagonstic Imaging: Xray Plain Films/CT/US/NM/MRI: chest Comments [facility], [place] NAME: GIANFRANCO [facility]IS [facility] REC#: [id number] PT STATUS: REG ER : 1995 PHYSICIAN: ISAC RAMSEY MD ADMIT DATE: 07/10/22/ER Draft Date of Exam:07/10/22 CHEST 1 VIEW, AP/PA ONLY INDICATION: Chest pain Portable chest 2:35 PM Heart and mediastinum are normal. Lungs are clear. There are no effusions or pneumothoraces. IMPRESSION: No acute abnormalities in the chest. Dictated on workstation # [id number] Dict: 07/10/22 1444 Trans: 07/10/[address] [facility] [id number] Interpreted by: ISAC THOMAS MD Electronically signed by: Reviewed: Reviewed by Me Departure Communication (Admissions) Time/Spoke to Admitting Phy: 15:49 Time/Spoke to Consulting Phy: 15:37 Impression Primary Impression: Pericarditis Qualified Codes: I30.9 - Acute pericarditis, unspecified Disposition: ADMITTED INPATIENT Condition: Stable Admissions Decision to Admit Reason: Admit from ER (General) Decision to Admit/Date: Jul 10, 2022 Time/Decision to Admit Time: 15:37 Departure-Patient Inst. Referrals: [facility] (PCP/Family) Primary Care Physician ISAC RAMSEY MD Jul 10, 2022 14:01
[2022-07-10 14:07] LABS: ALBUMIN 3.6 GM/DL (3.2-4.5); CHLORIDE 107 MMOL/L (98-107); POTASSIUM 3.8 MMOL/L (3.6-5.0); SODIUM 139 MMOL/L (135-145)
[2022-07-10 14:08] LABS: CALCIUM 8.8 MG/DL (8.5-10.1)
[2022-07-10 14:09] LABS: GLUCOSE 100 MG/DL (70-105); TOTAL PROTEIN 6.6 GM/DL (6.4-8.2)
[2022-07-10 14:10] LABS: CARBON DIOXIDE 23 MMOL/L (21-32)
[2022-07-10 14:11] LABS: BILIRUBIN,TOTAL 0.6 MG/DL (0.1-1.0)
[2022-07-10 14:13] LABS: ALKALINE PHOSPHATASE 57 U/L (40-136); GFR ESTIMATED 124
[2022-07-10 14:14] LABS: BUN/CREATININE RATIO 14
[2022-07-10 14:16] LABS: ALANINE AMINOTRANSFERASE 11 U/L (0-55); LIPASE 29 U/L (8-78)
--- NOTE | 2022-07-10 14:47 | Diagnostic Imaging Report ---
INDICATION: Chest pain Portable chest 2:35 PM Heart and mediastinum are normal. Lungs are clear. There are no effusions or pneumothoraces. IMPRESSION: No acute abnormalities in the chest. Dictated by: Dictated on workstation # [id number]
[2022-07-10 15:28] LABS: ERYTHROCYTE SEDIMENTATION RATE 62 MM/HR (0-20)
[2022-07-10] MEDS ORDERED: ASPIRIN 325 MG (5 GR) TABLET PO ONE (15:45)
[2022-07-10] MEDS ORDERED: PANTOPRAZOLE 40 MG (PROTONIX) VIAL IV ONE (16:00)
[2022-07-10] MEDS ORDERED: ONDANSETRON 4 MG/2 ML (SDV) Z0FRAN IVP PRN (16:45)
[2022-07-10] MEDS ORDERED: PATIENT MAY USE OWN MEDS, ALL PO SCH (16:45)
[2022-07-10] MEDS: ENOXAPARIN 40 MG/0.4 ML (LOVENOX) SYR SC SCH (17:19)
[2022-07-10] MEDS: IBUPROFEN 600 MG (MOTRIN) TAB PO SCH (17:19)
[2022-07-11] MEDS: IBUPROFEN 600 MG (MOTRIN) TAB PO SCH ×3 (00:29→15:49)
[2022-07-11 03:44] VITALS: BP 108/69
[2022-07-11 08:13] VITALS: BP 111/66
[2022-07-11] MEDS ORDERED: PANTOPRAZOLE 40 MG (PROTONIX) TAB PO SCH (09:00)
[2022-07-11] MEDS ORDERED: CETI10TA17 PO (10:17)
[2022-07-11] MEDS ORDERED: NORG1TAB14 PO (10:17)
[2022-07-11] MEDS ORDERED: MULT-1136 PO (10:17)
[2022-07-11] MEDS ORDERED: FLUO20CA48 PO ×2 (10:17→15:23)
[2022-07-11] MEDS ORDERED: FLUO10CA33 PO ×2 (10:17→15:23)
--- NOTE | 2022-07-11 11:05 | History & Physical ---
HPI History of Present Illness: Having chest pain intermittently for around 5 days, worse after lunch yesterday so she came in. Is mid-sternum and radiates toward left. Has had pericarditis in the past, she believes in 2018. She was treated in [place] and followed up with Cardiology in [place] for about a year after and was cleared. Past sat has had diarrhea on and off, excessive gas and some nausea. When she gets the pain in her chest, if she takes a deep breath it feels a little harder to do that. Position changes don't necessarily seem to make it better or worse, but last night laying on her side seemed to worsen it. Denies any recent illness or recent exposure to illness that she knows of. Has not tried any treatment for chest pain at home. Currently rates as 2/10, mild discomfort, was around 5/10 when she came in. Ran out of fluoxetine 3 days ago, was taking 30 mg. Source: patient Date seen by provider: Jul 11, 2022 Time Seen by Provider: 11:03 Attending Physician [place] PCP Admitting Physician: Kulwant Miles MD Attending Physician: Kulwant Miles MD Consult Date of Admission Jul 10, 2022 at 15:54 Home Medications Home Medications Reviewed patient Home Medication Reconciliation performed by pharmacy medication reconciliations pest control service technician and/or nursing. Patients Allergies have been reviewed. Allergies Coded Allergies: Penicillins (Unverified Allergy, Unknown, 07/10/22) cephalexin (Verified Allergy, Unknown, HIVES, 07/10/22) XEO-Dvmpeu-Imjwxr Hx Patient Social History Smoking Status: Former Smoker (smoked for brief period several years ago) 2nd Hand Smoke Exposure: Yes Recent Hopitalizations: No Alcohol Use?: Yes (occasional) Have you traveled recently?: No Immunizations Up To Date Influenza Vaccine Up-to-Date: No; Not Current First/Initial COVID19 Vaccinat: 2020 Second COVID19 Vaccination Tevin: 2020 Third COVID19 Vaccination Date: 2020 COVID19 Vaccine Sous Chef: PFIZER Past Medical History PMHx: Pericarditis Depression SurgHx: Tonsillectomy Family Medical History Significant Family History: Diabetes, Hypertension, Other Conditions/Hx (lupus) Review of Systems (CHC) Constitutional: No fever EENTM: No vision loss, No throat pain Respiratory: No cough, No short of breath Gastrointestinal: No abdominal pain, No constipation, No diarrhea, No nausea, No vomiting Genitourinary: No dysuria, No frequency Musculoskeletal: No joint pain Skin: No rash; other (has had intermittent white discharge from nipple since having piercing in the past, but Jul 02 had yellow/green from left, larger amount that came out all at one time with manual expression, decreased over next 2 days) Psychiatric/Neurological: Denies Headache, Denies Weakness Reviewed Test Results Reviewed Test Results Lab Laboratory Tests Test 07/10/22 13:40 07/10/22 16:49 Range/Units White Blood Count 9.1 4.3-11.0 10^3/uL Red Blood Count 4.23 3.80-5.11 10^6/uL Hemoglobin 10.9 L 11.5-16.0 g/dL Hematocrit 34 L 35-52 % Mean Corpuscular Volume 80 80-99 fL Mean Corpuscular Hemoglobin 26 25-34 pg Mean Corpuscular Hemoglobin Concent 32 32-36 g/dL Red Cell Distribution Width 15.7 H 10.0-14.5 % Platelet Count 238 130-400 10^3/uL Mean Platelet Volume 10.5 9.0-12.2 fL Immature Granulocyte % (Auto) 0 % Neutrophils (%) (Auto) 62 42-75 % Lymphocytes (%) (Auto) 28 12-44 % Monocytes (%) (Auto) 7 0-12 % Eosinophils (%) (Auto) 3 0-10 % Basophils (%) (Auto) 0 0-10 % Neutrophils # (Auto) 5.7 1.8-7.8 10^3/uL Lymphocytes # (Auto) 2.5 1.0-4.0 10^3/uL Monocytes # (Auto) 0.7 0.0-1.0 10^3/uL Eosinophils # (Auto) 0.2 0.0-0.3 10^3/uL Basophils # (Auto) 0.0 0.0-0.1 10^3/uL Immature Granulocyte # (Auto) 0.0 0.0-0.1 10^3/uL Erythrocyte Sedimentation Rate 62 H 0-20 MM/HR Sodium Level 139 135-145 MMOL/L Potassium Level 3.8 3.6-5.0 MMOL/L Chloride Level 107 98-107 MMOL/L Carbon Dioxide Level 23 21-32 MMOL/L Anion Gap 9 5-14 MMOL/L Blood Urea Nitrogen 10 7-18 MG/DL Creatinine 0.70 0.60-1.30 MG/DL Estimat Glomerular Filtration Rate 124 BUN/Creatinine Ratio 14 Glucose Level 100 70-105 MG/DL Calcium Level 8.8 8.5-10.1 MG/DL Corrected Calcium 9.1 8.5-10.1 MG/DL Total Bilirubin 0.6 0.1-1.0 MG/DL Aspartate Amino Transf (AST/SGOT) 12 5-34 U/L Alanine Aminotransferase (ALT/SGPT) 11 0-55 U/L Alkaline Phosphatase 57 40-136 U/L Troponin I < 0.088 H < 0.028 <0.028 NG/ML C-Reactive Protein High Sensitivity 0.69 H 0.00-0.50 MG/DL Total Protein 6.6 6.4-8.2 GM/DL Albumin 3.6 3.2-4.5 GM/DL Lipase 29 8-78 U/L Radiology CXR 07/10/22 No acute abnormalities Physical Exam-(CHC) Physical Exam Vital Signs VS - Last 72 Hours, by Label 07/10/22 07/10/22 07/10/22 07/10/22 13:33 16:36 17:00 17:09 Temp 36.4 36.8 Pulse 74 66 62 Resp 16 10 22 B/P (MAP) 139/811 (589) 125/82 118/63 (81) Pulse Ox 98 100 98 98 O2 Delivery Room Air Room Air Room Air 07/10/22 07/10/22 07/10/22 07/10/22 17:15 17:30 17:46 18:00 Temp 36.5 37.0 37.1 36.8 Pulse 66 67 63 77 Resp 22 22 22 22 B/P (MAP) 125/67 (86) 118/67 (84) 118/59 (78) 129/69 (89) Pulse Ox 100 100 100 99 O2 Delivery Room Air Room Air Room Air Room Air 07/10/22 07/10/22 07/10/22 07/10/22 18:01 19:00 20:04 20:19 Temp 36.4 Pulse 62 71 67 Resp 20 B/P (MAP) 104/54 (71) Pulse Ox 98 O2 Delivery Room Air Room Air 07/10/22 07/11/22 07/11/22 07/11/22 23:17 01:00 03:44 07:20 Temp 36.7 36.7 Pulse 67 64 62 61 Resp 18 18 B/P (MAP) 101/64 (76) 108/69 (82) Pulse Ox 98 97 O2 Delivery Room Air Room Air 07/11/22 07/11/22 07/11/22 07/11/22 08:00 08:13 12:49 13:29 Temp 36.9 36.9 Pulse 66 71 82 Resp 18 18 B/P (MAP) 111/66 (81) 106/70 (82) Pulse Ox 97 98 O2 Delivery Room Air Room Air Room Air Capillary Refill : General Appearance: WD/WN, no apparent distress Respiratory: lungs clear, normal breath sounds Cardiovascular: regular rate, rhythm, no murmur, other (normal PMI, quiet precordium) Gastrointestinal: normal bowel sounds, non tender, soft, no organomegaly Extremities: no pedal edema Neurologic/Psychiatric: alert, normal mood/affect Skin: normal color, warm/dry Comments Left breast with no palpable masses, no nipple discharge spontaneous or expressed Assessment/Plan Assessment/Plan Admission Status: Observation (1) Chest pain Status: Acute Assessment & Plan: Possible recurrent pericarditis, Cardiology consulted, appreciate recommendations. Repeat troponin normal. Echo unremarkable. (2) Elevated troponin Status: Resolved Assessment & Plan: Possible recurrent pericarditis, appreciate Cardiology recommendations. (3) Pericarditis Status: Acute Assessment & Plan: Suspected, Cardiology consulted. Started on scheduled ib uprofen. Treating for possible GI cause with PPI. Qualifiers: Qualified Codes: I30.9 - Acute pericarditis, unspecified (4) Depression Status: Chronic Assessment & Plan: Resume fluoxetine (5) Uses oral contraceptives as primary control method Status: Chronic Assessment & Plan: Discussed taking missed dose cortney and using back up method (6) Nipple discharge in female Status: Acute Assessment & Plan: Appears resolved, no FH of breast cancer, no masses or discharge on exam today, follow up if recurs. (7) DVT prophylaxis Status: Acute Assessment & Plan: Enoxaparin Clinical Quality Measures AMI/AHF: ASA po Prior to arrival: KULWANT Edwards MD Jul 11, 2022 11:05
--- NOTE | 2022-07-11 12:07 | Consultation-Cardiology ---
HPI-Cardiology Cardiology Consultation Date of Consultation 07/11/22 Date of Admission Time Seen by Provider: 11:03 Indication: Chest pain, history of pericarditis HPI Patient is a 26 y/o female with history of pericarditis, occurred approx 5 years ago after viral infection. Presented to the ER with complaints of intermittent chest pain for the last several days, reporting feeling similar to when she had pericarditis in the past. Denies any active chest pain at this time. States had an episode of chest pain after eating dinner and reports history of GI upset over the past month with increased flatulence and intermittent diarrhea. Denies any dizziness, lightheadedness or syncope. Denies any dyspnea. Home Medications & Allergies Allergies: Coded Allergies: Penicillins (Unverified Allergy, Unknown, 07/10/22) cephalexin (Verified Allergy, Unknown, HIVES, 07/10/22) Home Medication List Reviewed: Yes KFL-Qpaksw-Fijjkc Hx Patient Social History Marital Status: single Smoking Status: Former Smoker (smoked for brief period several years ago) 2nd Hand Smoke Exposure: Yes Recent Hopitalizations: No Have you traveled recently?: No Alcohol Use?: Yes (occasional) Past Medical History pericarditis Family Medical History Significant Family History: Diabetes, Hypertension, Other Conditions/Hx (lupus) Review of Systems-General Review of Systems Constitutional: see HPI; No chills, No fever EENTM: No vision loss, No throat pain Respiratory: No cough, No short of breath Cardiovascular: see HPI, chest pain; No edema, No Hx of Intervention Gastrointestinal: see HPI; No abdominal pain, No constipation; diarrhea, nausea; No vomiting Genitourinary: No dysuria, No frequency Musculoskeletal: No joint pain Skin: No rash; other (has had intermittent white discharge from nipple since having piercing in the past, but Jul 02 had yellow/green from left, larger amount that came out all at one time with manual expression, decreased over next 2 days) Psychiatric/Neurological: Denies Headache, Denies Weakness Reviewed Test Results Reviewed Test Results Radiology CXR 07/10/22 No acute abnormalities ECG Impression ECG Initial ECG Rhythm: Normal Sinus Physical Exam Physical Exam Vital Signs Vital Signs - First Documented 07/10/22 07/10/22 13:33 16:36 Temp 36.4 Pulse 74 Resp 16 B/P (MAP) 139/811 (589) Pulse Ox 98 O2 Delivery Room Air Capillary Refill : Height, Weight, BMI Height: '" Weight: lbs. oz. kg; 28.54 BMI Method:Stated General Appearance: No Apparent Distress, WD/WN HEENT: PERRL/EOMI, Pharynx Normal Neck: Non Tender, Supple Respiratory: Lungs Clear, Normal Breath Sounds Cardiovascular: Regular Rate, Rhythm, No Murmur Gastrointestinal: Non Tender, Soft Extremity: Normal Range of Motion, Non Tender Neurologic/Psychiatric: Alert, Oriented x3 Skin: Warm/Dry, Other (Evaluated left breast and no nipple discharge noted or abscess. No surrounding erythema around nipple or areola. No obvious signs of infection currently.) A/P-Cardiology Admission Diagnosis Chest pain Elevated troponin Hx pericarditis GERD Assessment/Plan Chest pain nonspecific etiology, patient reporting improvement at this time. Questionable pericarditis, started on Ibuprofen. 2D echo was done on July 10, 2022 with normal LV size, EF 55 to 60%, PA pr essure 30 to 35 mmHg No signs of pericarditis or pericardial effusion Minimally elevated troponin, repeat troponin negative History of pericarditis approx 5 years ago after viral illness GERD, started on Protonix Recent GI upset with increased flatulence and intermittent diarrhea Thank you for allowing us to participate in the management of Ms. Montoya. This is Charu Hernandez PA-C, as a scribe for Dr. Bay. Patient was seen and evaluated with Charu, I interviewed and examined the patient and discussed the management plan Patient has been having chest pain, atypical in presentation, EKG did not show any acute abnormality, had recent pus discharge from her nipple which could account for her elevated sedimentation rate. No signs of pericarditis. Probable underlying costochondritis. Okay for discharge and follow-up as an outpatient Clinical Quality Measures AMI/AHF: ASA po Prior to arrival: No CHARU OG Jul 11, 2022 12:07 FREDY BAY MD Jul 11, 2022 13:20
[2022-07-11 12:49] VITALS: BP 106/70
[2022-07-11] MEDS ORDERED: PANT40TA52 PO (15:23)
[2022-07-11] MEDS ORDERED: IBUP-844 PO (15:23)
--- NOTE | 2022-07-11 15:25 | Discharge Summary ---
Discharge Summary Hospital Course Problems/Diagnosis: (1) Chest pain Status: Acute Assessment & Plan: Possible recurrent pericarditis, Cardiology consulted- felt given normal echo and EKG and clinical findings pericarditis unlikely, suspect costochondritis, appreciate recommendations. Repeat troponin normal. Echo unremarkable. (2) Elevated troponin Status: Resolved Resolution Date/Time: 07/10/12 @ 11:14 Assessment & Plan: Possible recurrent pericarditis, appreciate Cardiology recommendations. (3) Depression Status: Chronic Assessment & Plan: Out of SSRI x 3 days, refilled on d/c. Hospital Course Date of Admission: Jul 10, 2022 at 15:54 Admission Diagnosis : Family Physician/Provider: [place] [place] Date of Discharge: 07/11/22 Discharge Diagnosis: See problem list Hospital Course: See problem list Labs and Pending Lab Test: Laboratory Tests 07/10/22 16:49: Troponin I < 0.028 Home Meds Active Reported Multivitamin 1 Each Tablet 1 Each PO HS Cetirizine HCl 10 Mg Tablet 10 Mg PO HS Fluoxetine HCl 20 Mg Capsule 20 Mg PO HS TAKES 10MG +20MG TO EQUAL 30MG DAILY LAST FILLED 05-02-2022 #30/30 DAY SUPPLY Fluoxetine HCl 10 Mg Capsule 10 Mg PO HS TAKES 10MG +20MG TO EQUAL 30MG DAILY LAST FILLED 05-02-2022 #30/30 DAY SUPPLY Sprintec 28 Day Tablet (Norgestimate-Ethinyl Estradiol) 0.25 Mg-35 Mcg Tablet 1 Each PO HS Assessment/Pt DC Instructions Follow up with primary provider within 2 weeks of discharge. Discharge Diet: Regular Diet Activity as Tolerated: Yes Consulations Consultations Cardiology Discharge Physical Examination Allergies: Coded Allergies: Penicillins (Unverified Allergy, Unknown, 07/10/22) cephalexin (Verified Allergy, Unknown, HIVES, 07/10/22) General Appearance: No Apparent Distress, WD/WN Respiratory: Lungs Clear, Normal Breath Sounds Cardiovascular: Regular Rate, Rhythm, No Murmur Gastrointestinal: Normal Bowel Sounds, Non Tender, Soft Skin: Normal Color, Warm/Dry Neurologic/Psychiatric: Alert, No Motor/Sensory Deficits Clinical Quality Measures AMI/AHF: ASA po Prior to arrival: KULWANT Edwards MD Jul 11, 2022 15:25
[2022-07-11] MEDS: ENOXAPARIN 40 MG/0.4 ML (LOVENOX) SYR SC SCH (15:49)
[2022-07-11 16:00] VITALS: BP 116/74
[2022-07-11 17:58] VITALS: BP 116/74
[2022-07-11] MEDS ORDERED: MULTIVIT W/MINERALS TAB (THERAGRAN M) PO SCH (21:00)
[2022-07-11] MEDS ORDERED: LORATADINE (CLARITIN) 10 MG TAB PO SCH (21:00)
[2022-07-11] MEDS ORDERED: NON-FORMULARY MEDICATION 1 EA EA (Cetirizine HCl 10 MG) PO SCH (21:00)
[2022-07-11] MEDS ORDERED: FLUoxetine HCL 20 MG (PROzac) CAP PO SCH (21:00)
[2022-07-11] MEDS ORDERED: FLUoxetine HCL 10 MG (PROzac) CAPSULE/TABLET PO SCH (21:00)
== END 2022-07-11 17:59 | disposition home or self-care (01) ==
LOC: EDUNIT# 13:25 → ER 13:31 → 4TH 15:54
PROVIDERS: ADMIT Family Medicine; ATTEND Family Medicine
DX: R07.9 Chest pain, unspecified (principal); R77.8 Other specified abnormalities of plasma proteins; K21.9 Gastro-esophageal reflux disease without esophagitis; F32.A Depression, unspecified; I31.9 Disease of pericardium, unspecified; N64.52 Nipple discharge; Z79.3 Long term (current) use of hormonal contraceptives; Z87.891 Personal history of nicotine dependence
CPT/HCPCS: 71045; 80053; 83690; 84484; 85025; 85652; 86141; 93005 ×2; 99283; C8929; 36415; 93306; 96372; G0378